=== PATIENT | male | born 1980 | race Caucasian/White ===

== ENCOUNTER 2025-11-05 14:33 | Emergency (ER) | payer MEDICAID, SELFPAY ==
[2025-11-05 14:35] VITALS: PULSE 130; RESP 16; BMI 39.5
--- NOTE | 2025-11-05 14:39 | EKG_ITS ---
[facility] Test Date: 2025-11-05 Pat Name: SAMANTHA GOFF Department: Room: - Gender: Male Structural Rigger: : 1980 Requested By: Pj Pradhan Order Number: [id number] Reading MD: Pj Pradhan Measurements Intervals [place] Rate: 117 P: 74 DC: 179 QRS: -50 QRSD: 94 T: 62 QT: 368 QTc: 514 Interpretive Statements SINUS TACHYCARDIA PATTERN CONSISTENT WITH PULMONARY DISEASE LEFT ANTERIOR FASCICULAR BLOCK [QRS AXIS <= -45, QR IN I, RS IN II] No previous ECG available for comparison /[id number]
[2025-11-05 14:40] VITALS: BP 183/134; PULSE 121; RESP 20; TEMP 36.6; O2SAT 98
[2025-11-05 15:13] LABS: Basophils # (Auto) 0.0 Thou/mm3 (0.0-0.2); Basophils % (Auto) 1 % (0-2.5); Eosinophils # (Auto) 0.1 Thou/mm3 (0.0-0.5); Eosinophils % (Auto) 1 % (0-10); Hematocrit 43.2 % (41.0-53.0); Hemoglobin 15.1 g/dL (13.5-16.0); Immature Granulocytes Auto 0.03 Thou/mm3 (0.00-0.00); Lymphocytes # (Auto) 1.0 Thou/mm3 (1.0-4.8); Lymphocytes % (Auto) 15 % (10-50); Mean Corpuscular HGB Conc 35.0 g/dl (31.0-37.0); Mean Corpuscular Hemoglobin 30.5 pg (25.0-35.0); Mean Corpuscular Volume 87 fL (80-100); Monocytes # (Auto) 0.5 Thou/mm3 (0.0-0.8); Monocytes % (Auto) 8 % (0-12); Neutrophils # (Auto) 4.9 Thou/mm3 (1.8-7.7); Neutrophils % (Auto) 74 % (37-80); Nucleated Red Blood Cell # 0.00 Thou/mm3 (0.00-0.00); Nucleated Red Blood Cell % 0 /100 WBC (0); Platelet Count 127 Thou/mm3 (140-440); RDW Standard Deviation 40.0 fL (35.1-43.9); Red Blood Count 4.95 Miln/mm3 (4.50-5.90); White Blood Count 6.6 Thou/mm3 (3.8-10.6)
[2025-11-05 15:15] VITALS: BP 147/93; PULSE 110
[2025-11-05 15:31] LABS: Alanine Aminotransferase 63 U/L (10-49); Albumin, Serum 4.7 gm/dL (3.5-5.0); Albumin/Globulin Ratio 1.6 (1.2-2.2); Alcohol, Blood Medical < 3.0 mg/dL (0-10.0); Alkaline Phosphatase 55 U/L (46-116); Anion Gap 12 (7-16); Aspartate Amino Transferase 51 U/L (0-34); BUN/Creatinine Ratio 14 Ratio (12-20); Bilirubin,Total 0.7 mg/dL (0.3-1.2); Blood Urea Nitrogen 13 mg/dL (9-23); Calcium 8.9 mg/dL (8.3-10.6); Calcium (Corrected) 8.9 mg/dL (8.5-10.1); Carbon Dioxide 26.9 mMol/L (20.0-31.0); Chloride 103 mMol/L (98-107); Creatinine (Component) 0.9 mg/dL (0.6-1.3); Estimated Creatinine Clearance 130.7 mL/min (>60); Globulin 2.9 gm/dL (2.3-3.5); Glucose 118 mg/dL (74-106); Osmolality,Calculated 284 (275-295); Potassium 3.8 mMol/L (3.4-5.1); Sodium 142 mMol/L (136-145); Total Protein 7.6 gm/dL (5.7-8.2); Troponin I < 0.020 ng/mL (0.0-0.045); eGFR > 60 See Note
--- NOTE | 2025-11-05 16:07 | PD.EDANX ---
ED Anxiety RME/HPI General Chief Complaint: Anxiety Stated Complaint: ANXIETY Time Seen by Provider: 11/05/25 14:35 Source: patient Arrival date/time: 11/05/25 14:33 Mode of arrival: ambulatory Limitations: no limitations RME / HPI RME / HPI narrative: This patient is a pleasant but obese 45-year-old male who arrives to the ED today with complaints of left-sided chest pain and nonspecific left shoulder pain for the past day. Patient states the events came on yesterday, resolved, but returned today. Patient describes the pain as kind of stabbing pain in his left-sided chest that is inconsistent. Patient's history is significant for anxiety as well as a history of alcoholism and binge drinking. Patient states he does still consume alcohol, but has not in the past few days. Patient was hypertensive and tachycardic on arrival. Related Data Home Medications ?Medication ?Instructions ?Recorded ?Confirmed sulfamethoxazole 800 1 tab PO BID 08/14/21 08/14/21 mg-trimethoprim 160 mg tablet Previous Rx's ?Medication ?Instructions ?Recorded amoxicillin 875 mg-potassium 1 tab PO BID #20 tabs 08/15/21 clavulanate 125 mg tablet (Augmentin) clindamycin HCl 300 mg capsule 300 mg PO Q6H #40 caps 08/15/21 ibuprofen 800 mg tablet (IBU) 800 mg PO Q8H PRN pain #20 tabs 11/05/25 lorazepam 0.5 mg tablet (Ativan) 0.5 mg PO TID PRN anxiety #10 tabs 11/05/25 Allergies Allergy/AdvReac Type Severity Reaction Status Date / Time No Known Allergies Allergy Verified 11/05/25 14:40 Review of Systems Review of Systems Systems Reviewed: All systems reviewed, normal except as documented Past Medical History Past Medical History CARDIAC: Positive Hypercholesterolemia and Hypertension; Negative Congestive Heart Failure RESPIRATORY: Negative Chronic Obstructive Pulmonary Disease (COPD) GENITOURINARY: Negative Renal Disease ENDOCRINE: Negative Diabetes Mellitus Type 1 or Diabetes Mellitus Type 2 PSYCHO/SOCIAL: Positive Anxiety Social History SMOKING STATUS: Never smoker ED Exam General Limitations: Present no limitations General appearance: Present in distress (Mild to moderate distress due to anxiety and chest pain concerns.) Head Head exam: Present atraumatic Eye Eye exam: Present normal appearance, PERRL and EOMI ENT ENT exam: Present normal exam, normal oropharynx and mucous membranes moist Neck Neck exam: Present normal inspection, full ROM and trachea midline Chest Chest inspection: Present normal inspection, symmetric chest wall rise and other (Point specific tenderness to palpation noted at the midclavicular line between ribs 5 and 6 on the left side. No signs of trauma. No crepitus.) Respiratory Respiratory exam: Present normal lung sounds bilaterally Cardiovascular Cardiovascular exam: Present regular rate, normal rhythm and normal heart sounds Abdominal Exam Abdominal exam: Present soft and normal bowel sounds Extremities Exam Extremities exam: Present normal inspection, full ROM and other (Unremarkable left shoulder evaluation. No pain to palpation. No signs of trauma.) Back Exam Back exam: Present normal inspection and full ROM Neurological Exam Neurological exam: Present alert, oriented X3 and CN II-XII intact Psychiatric Psychiatric exam: Present normal affect and normal mood Skin Skin exam: Present warm, dry, intact and normal color Course Quality Measures none Orders Category Date Time Status EKG (ED ONLY) *Do not use* NOW Care 11/05/25 14:39 Completed EKG (ED Only) Stat Exams 11/05/25 14:39 Draft Alcohol, Blood Medical Stat Lab 11/05/25 15:00 Completed CBC Stat Lab 11/05/25 15:00 Completed CMP [Comprehensive Metabolic Panel] Stat Lab 11/05/25 15:00 Completed Troponin I Stat Lab 11/05/25 15:00 Completed LORazepam [Ativan] Med 11/05/25 14:38 Discontinued 0.5 mg PO X1 ONE cloNIDine HCL [Catapres] Med 11/05/25 14:38 Discontinued 0.2 mg PO X1 ONE Vital Signs Vital signs: Vital Signs Temperature 97.9 F 11/05/25 14:40 Pulse Rate 121 H 11/05/25 14:40 Respiratory Rate 20 11/05/25 14:40 Blood Pressure 183/134 H 11/05/25 14:40 Pulse Oximetry (%) 98 11/05/25 14:40 Oxygen Delivery Method Room Air 11/05/25 14:40 Anxiety MDM Narrative MDM Narrative: All studies performed the ED were evaluated by me personally. Serum studies are unremarkable for any systemic concerns including unremarkable cardiac markers. EKG at arrival revealed a sinus tachycardia with a rate of 117. Left anterior fascicular block was noted. SD interval 179 and QT interval 368. There was no STEMI appreciated or acute coronary concern. Patient responded well to medication dispensed. Spent time discussing anxiety concerns with the patient as well as costochondritis. I believe the patient had a combination of both occurring. Advised patient that if his symptoms continue, he will need to follow-up with a primary care provider for mental health referral and evaluation. Patient data External records reviewed:: [facility] previous records Clinical information provided by:: patient and family Social determinants that could affect healthcare access:: none Patient has the following chronic illnesses:: None How is presenting disease/condition affected by chronic disease/condition?: uneffected by Evaluation data The following diagnostics were reviewed and interpreted by me:: lab results, radiology exam(s) and EKG tracing(s) Lab and/or radiology exams considered but not ordered:: None Interpretation Summary: Anxiety, costochondritis Medications / Prescriptions Medications or Prescriptions considered but not ordered:: None Medication administrations:: Medication Administration History Discontinued Medications Clonidine (Clonidine Hcl 0.1 Mg Tablet) 0.2 mg PO X1 ONE Stop: 11/05/25 14:39 Last Admin: 11/05/25 15:15 Dose: 0.2 mg Documented By: GURJIT Lorazepam (Lorazepam 0.5 Mg Tablet) 0.5 mg PO X1 ONE Stop: 11/05/25 14:39 Last Admin: 11/05/25 15:14 Dose: 0.5 mg Documented By: GURJIT Consultations Consultation(s) initiated? (list below): No Diagnosis Differential diagnosis anxiety: acute anxiety and other (Costochondritis, acute coronary event, myocardial infarction, sepsis, electrolyte abnormality) Most likely diagnosis given after review of the tests above:: Anxiety, costochondritis Admission Indicated Admission indicated?: not indicated Explain why admission is indicated or not indicated:: Unwarranted Admission Request Was there a request for admission?: No Disposition Plan Disposition Plan: Discharge Discharge Attestation Discharge Attestation: The patient and all family members were given an opportunity to ask questions and understood the discharge instructions. Discharge instructions specifically effects, indications for sooner follow up or return to the emergency department, and the expected course of current diagnosis. Patient condition: Stable Discharge Plan Plan Patient Disposition: HOME (Self Care) Prescriptions/Referrals Prescriptions/Med Rec: New ibuprofen [IBU] 800 mg tablet 800 mg PO Q8H PRN (Reason: pain) Qty: 20 0RF lorazepam [Ativan] 0.5 mg tablet 0.5 mg PO TID PRN (Reason: anxiety) Qty: 10 0RF No Action sulfamethoxazole-trimethoprim 800-160 mg tablet 1 tab PO BID Patient Comments: TAKE 1 TABLET BY MOUTH TWICE A DAY amoxicillin-pot clavulanate [Augmentin] 875-125 mg tablet 1 tab PO BID Qty: 20 0RF clindamycin HCl 300 mg capsule 300 mg PO Q6H Qty: 40 0RF Problem List Clinical Impression: Acute anxiety, Costochondritis Patient/Caregiver Discharge Instructions Education Materials: Costochondritis, ED Anxiety Reaction Print Language: Tajik Stand Alone Forms: Nicole Award Info., Patient Portal Info Letter
--- NOTE | 2025-11-05 17:22 | PC.NURSE ---
Pt appears to be having on going anxiety attacks. RN attempt calming measuring with breathing, offered water. Provider assisted at bedside to reassure pt's labs and EKG were okay for pt to be discharged.
[2025-11-05 17:52] VITALS: BP 150/87; PULSE 99; RESP 19; TEMP 36.7; O2SAT 98
[2025-11-05 18:08] VITALS: BP 134/88; PULSE 85; RESP 18; TEMP 36.6; O2SAT 97
== END 2025-11-05 18:12 | disposition home or self-care (01) ==
LOC: SERX 16:19
PROVIDERS: Physician Assistant; Emergency Provider Family Medicine; PCP Obstetrics & Gynecology
DX: F41.9 Anxiety disorder, unspecified (principal); M94.0 Chondrocostal junction syndrome [Tietze]; I10 Essential (primary) hypertension; F10.20 Alcohol dependence, uncomplicated; E66.9 Obesity, unspecified; Z68.39 Body mass index [BMI] 39.0-39.9, adult
CPT/HCPCS: 36415; 80053; 80320; 84484; 85025; 93005; 99282; A9270; G0480